=== PATIENT | male | born 1950 | race Caucasian/White ===

== ENCOUNTER 2021-07-21 | Emergency (ER) | payer MEDICARE ==
[~2021-07-21] VITALS: Ht 175.3 cm; Wt 45.4 kg
[2021-07-21 00:56] LABS: HEMOGLOBIN 10.1 gm/dl (14.0-17.5); RED BLOOD COUNT 4.04 M/UL (4.20-5.50); WHITE BLOOD COUNT 21.3 K/UL (4.5-11.0)
[2021-07-21 01:37] LABS: BUN/CREATININE RATIO 25 (0-10)
[2021-07-22 04:57] LABS: BUN/CREATININE RATIO 16 (0-10)
[2021-07-23 06:51] LABS: RED BLOOD COUNT 2.81 M/UL (4.20-5.50); WHITE BLOOD COUNT 15.8 K/UL (4.5-11.0)
[2021-07-23 06:56] LABS: BUN/CREATININE RATIO 16 (0-10)
[2021-07-23 07:49] LABS: HEMOGLOBIN 7.5 gm/dl (14.0-17.5); RED BLOOD COUNT 3.06 M/UL (4.20-5.50); WHITE BLOOD COUNT 14.7 K/UL (4.5-11.0)
[2021-07-24 06:02] LABS: BUN/CREATININE RATIO 17 (0-10)
[2021-07-24 12:27] LABS: HEMOGLOBIN 7.7 gm/dl (14.0-17.5); RED BLOOD COUNT 3.13 M/UL (4.20-5.50); WHITE BLOOD COUNT 13.5 K/UL (4.5-11.0)
== END 2021-07-25 13:30 | disposition short-term general hospital (02) ==
LOC: ER1
PROVIDERS: Family Medicine; Internal Medicine Infectious Disease; Student in an Organized Health Care Education/Training Program
DX: E87.1 Hypo-osmolality and hyponatremia (principal); D72.829 Elevated white blood cell count, unspecified; J47.9 Bronchiectasis, uncomplicated; J98.4 Other disorders of lung; D64.9 Anemia, unspecified; J44.9 Chronic obstructive pulmonary disease, unspecified; K76.0 Fatty (change of) liver, not elsewhere classified
CPT/HCPCS: 70450; 80048; 80053; 80202; 80307; 81001; 82550; 82553; 83605; 83690; 83874; 84484; 85025; 85379; 86140; 86850; 86900; 86901; 86920; 87040; 93005; 96365; 96366; 96368; 96372; 96376; 99284; J1650; J2543; J3370; J7030; J7070; Q9967; U0002

== ENCOUNTER 2021-10-26 21:11 | Emergency (ER) | payer MEDICARE ==
[2021-10-26 21:58] LABS: HEMOGLOBIN 11.7 gm/dl (14.0-17.5); RED BLOOD COUNT 4.09 M/UL (4.20-5.50); WHITE BLOOD COUNT 15.5 K/UL (4.5-11.0)
[2021-10-26 22:58] LABS: BUN/CREATININE RATIO 11 (0-10)
[2021-10-27 05:33] LABS: BUN/CREATININE RATIO 10 (0-10)
[2021-10-27] MEDS ORDERED: ZOFRAN ODT 4 MG4 MG PO (05:52)
== END 2021-10-27 06:30 | disposition home or self-care (01) ==
LOC: ER1 21:11
PROVIDERS: Family Medicine; Physician Assistant
DX: R10.10 Upper abdominal pain, unspecified (principal); R07.9 Chest pain, unspecified; E87.1 Hypo-osmolality and hyponatremia; R10.817 Generalized abdominal tenderness; J44.9 Chronic obstructive pulmonary disease, unspecified; D64.9 Anemia, unspecified; Z86.16 Personal history of COVID-19; Z90.2 Acquired absence of lung [part of]; Z88.1 Allergy status to other antibiotic agents; Z88.5 Allergy status to narcotic agent; Z88.8 Allergy status to other drugs, medicaments and biological substances
CPT/HCPCS: 36415; 71045; 80053; 82550; 82553; 83690; 84484; 85025; 93005; 96374; 99284; J2405; Q9967